=== PATIENT | female | born 1985 | race Hispanic/Latino ===

== ENCOUNTER → 2018-04-06 | Outpatient (CLI) | payer OTHER ==
--- NOTE | 2018-04-06 14:30 | Diagnostic Imaging Report ---
PROCEDURE:HEEL/CALCANEOUS BILATERAL INDICATION:Bilateral heel pain COMPARISON:None. FINDINGS: Normal mineralization. No acute displaced fracture or dislocation. No lytic or blastic lesions. Moderate right and small to moderate left anterior calcaneal enthesophytes. Joint spaces are Soft tissues are unremarkable CONCLUSION: 1. No acute abnormalities. 2. Moderate right and small to moderate left anterior calcaneal enthesophytes. Abelino Blount M.D. Dictated by: Abelino Blount M.D. on 04/06/2018 at 14:34 Electronically approved by: Abelino Blount M.D. on 04/06/2018 at 14:34
== END ==
LOC: RAD 11:22
PROVIDERS: ATTEND Family Medicine
DX: M89.8X7 Other specified disorders of bone, ankle and foot (principal); M79.672 Pain in left foot; M79.671 Pain in right foot; M77.8 Other enthesopathies, not elsewhere classified

== ENCOUNTER → 2020-05-11 | Day surgery (SDC) | payer OTHER ==
[2020-05-06 12:01] LABS: BASOPHILS % 0.4 % (0.0-1.0); EOSINOPHILS # (AUTO) 0.1 (0.0-0.4); EOSINOPHILS % 1.7 % (0.0-6.0); HEMATOCRIT 38.1 % (34.2-44.1); HEMOGLOBIN 12.2 g/dL (12.0-16.0); LYMPHOCYTES # (AUTO) 2.6 (1.0-3.2); MEAN CORPUSCULAR VOLUME 90.5 fL (81-99); MONOCYTES # (AUTO) 0.4 (0.2-0.8); MONOCYTES % 4.8 % (4.4-11.3); NEUTROPHILS # (AUTO) 5.2 (2.1-6.9); NEUTROPHILS % 61.9 % (38.7-80.0); PLATELET COUNT 287 x10e3/uL (140-360); RED BLOOD COUNT 4.21 x10e6/uL (3.6-5.1); RED CELL DISTRIBUTION WIDTH 13.8 % (11.7-14.4)
[2020-05-06 12:13] LABS: INR 1.05; PROTHROMBIN TIME 14.3 seconds (11.9-14.5)
[2020-05-06 12:14] LABS: PARTIAL THROMBOPLASTIN TIME 26.6 seconds (23.8-35.5)
[2020-05-06 12:23] LABS: ALANINE AMINOTRANSFERASE 16 IU/L (0-55); ALBUMIN 3.7 g/dL (3.5-5.0); ALKALINE PHOSPHATASE 78 IU/L (40-150); ANION GAP 12.1 mmol/L (8-16); BLOOD UREA NITROGEN 14 mg/dL (7-26); BUN/CREATININE RATIO 18 (6-25); CARBON DIOXIDE 26 mmol/L (22-29); CHLORIDE 105 mmol/L (98-107); CHOL/HDL RATIO 3.7 (3.0-3.6); CHOLESTEROL 136 MD/DL (0-199); CREATININE, SERUM 0.79 mg/dL (0.57-1.11); EST GLOMERULAR FILTRATION RATE > 60 ML/MIN (60-); GLUCOSE 95 mg/dL (74-118); HDL CHOLESTEROL 37 MG/DL (40-60); LDL CHOLESTEROL 83 MG/DL (60-130); POTASSIUM 4.1 mmol/L (3.5-5.1); SODIUM 139 mmol/L (136-145); TRIGLYCERIDES 81 MG/DL (0-149)
[2020-05-11] VITALS (8 sets, daily range): BP systolic 100–123; BP diastolic 61–78
[~2020-05-11] MED LIST: ASPIRIN 81 MG CHEW TAB ONE; ASPIRIN325 MG PO; FENTANYL CITRATE/PF 100MCG/2 ML INJ ONE; HEPARIN SOD (PORCINE) 1000 UNIT/ML 30ML ONE; HEPARIN SOD/SOD CHLORIDE 2,000 ML ONE; IOPAMIDOL 370 MG/ML 200 ML INFUS..BTL INJ ONE; LIDOCAINE HCL 2% LOCAL 20 ML VIAL ONE; METOPROLOL SUCC25 MG PO; MIDAZOLAM HCL 2 MG/2 ML VIAL ONE; NITROGLYCERIN/D5W 200 MCG/ML 0 ML ONE; SODIUM CHLORIDE 0.9% 1000ML 1,000 ML ONE
--- NOTE | 2020-05-11 09:38 | NUR ---
0938a Received pt to room #9,bedside report received from Zaid SHARMA. Alert oriented and appropriate, PERRLA, respirations even and unlabored to room air. Pulses x4 extremities equal and strong. Pedal pulses PT/DP X4 1+/1+/1+/1+palpable and marked. Cap fill brisk < 3 sec. Rt Groin angioseal No gross issues pain,pallor,pressure or dysrhythmia. Flat till 11am and edc home 12n f/o 4wks may return work 1wk. Skin warm and dry integrity appears D/I IV 20g to KVO left hand site presents healthy w/o s/s of infiltration or complaint. Abdomen soft and supple. pt offered toileting, denies need to urinate or defecate. No personal affects with patient. Family at bedside. Pt and family verbalizes understanding of POC. Knows importance to fill lasix prescription and take. . Currently w/o complaint of pain or need. ingrid/[email or web address] Addendum: 05/11/20 at 1332 by Cassi Amador RN [id number] Amend Iv site locaton actual left ac site w/o s/s infiltration ,secured.
--- NOTE | 2020-05-11 11:00 | NUR ---
1100a discharge teaching completed Stable tolerating po intake and back to baseline orientation ds/rn
--- NOTE | 2020-05-11 11:12 | Operative Report ---
DATE OF PROCEDURE: 05/11/2020 SURGEON: Sundeep Orellana MD PROCEDURE INDICATION: Angina pectoris less limiting CCS III, stable. PROCEDURES PERFORMED: 1. Left heart catheterization. 2. Selective coronary angiography. 3. Right common femoral artery 6-[place] Angio-Seal closure. 4. Right and left heart catheterization. PROCEDURE COMPLICATIONS: None. ESTIMATED BLOOD LOSS: Less than 15 mL. PROCEDURE SUMMARY: After consent was obtained, the patient was prepped and draped in a sterile fashion. The right femoral site was locally infiltrated with 2% lidocaine. An ultrasound-guided access was obtained using micropuncture kit. A 6-[place] sheath was placed to the right common femoral artery and a 7-[place] sheath was placed to the right common femoral vein. Thermodilution pigtail catheter was advanced with an inflated balloon to pulmonary capillary wedge position and hemodynamic measurements were obtained from respective wedge, PA, RV, RA as well as saturations obtained for [place] cardiac output and thermodilution cardiac output also obtained. Attention then directed to the left heart catheterization. A JL4, JR4, and pigtail catheters were used to engage the left main, right coronary artery and to cross the aortic valve respectively 6-[place] catheter. At the end of the procedure, right common femoral artery arteriotomy was closed with 6-[place] Angio-Seal, achieving hemostasis manually to the right common femoral vein after sheath pull. The following findings were observed: 1. No significant gradient across the aortic valve on pullback, 30 peak LV and 30 peak aortic pressure on pullback. The LV pressure was 142/5 with end-diastolic pressure of 33. 2. The aortic pressure is 130/82. 3. Pulmonary capillary wedge was 22 A-wave, B 27, mean 21. 4. PA pressure was 40/19. 5. RV pressure is 44/5 with end-diastolic pressure of 14. 6. RA pressure was A-wave 8, B-wave 12, mean 11. 7. LV-gram reveals preserved left ventricular systolic function, normal regional wall motion, left ventricular ejection fraction is 65% to 70%. 8. [place] cardiac output was 5.62, [place] cardiac index 2.8, thermodilution cardiac output was 7.1. 9. Left main is large in caliber with luminal irregularities gives an LAD and circumflex. 10. The LAD has luminal irregularities throughout gives a diagonal and multiple septal perforators. 11. The ramus intermedius and rest of the left main is small in caliber and has luminal irregularities. 12. The circumflex arises from the left main is large in caliber and has luminal irregularities. It gives left atrial branch, 2 small obtuse marginal and 3rd medium caliber obtuse marginal. 13. The right coronary artery is dominant with luminal irregularities. It gives 2 RV marginals and a terminal RPDA and an RPLV. CONCLUSION: 1. Mild luminal irregularities noted throughout the coronary tree. 2. Preserved left ventricular systolic function and normal cardiac index. 3. Elevated LVEDP and mild pulmonary hypertension in the setting of elevated LVEDP. RECOMMENDATIONS: Furosemide 20 mg daily as needed for treatment of [id number] diastolic heart failure. Given findings, symptoms of crescendo angina likely represented increased volume overload in the setting of underlying diastolic heart disease. Medical therapy. MD CONY Parrish/CARLOS MANUEL /[id number]
--- NOTE | 2020-05-11 12:00 | NUR ---
1200p Discharge nursing note CCL Pt meets DC criteria. Rt groin assessed for s/s of complication and presence of hematoma. Skin warm, dry, no discolor, and pulses present. IV removed from left ac. Distal tip appears intact. VS WNL. Pt denies pain, sob, or need at this time. Family at [facility]. Review of discharge paperwork and follow up instructions. verbalized understanding. Pt to wheelchair and transported to front of hospital. Transferred to private vehicle under own strength w/o incident with DC paperwork in hand. - ds/rn
== END | disposition home or self-care (01) ==
LOC: CATH LAB 06:44
PROVIDERS: ATTEND Internal Medicine Cardiovascular Disease
DX: I50.33 Acute on chronic diastolic (congestive) heart failure (principal); Z11.59 Encounter for screening for other viral diseases; Z01.812 Encounter for preprocedural laboratory examination; Z79.82 Long term (current) use of aspirin
CPT/HCPCS: 36415 ×2; 80053; 80061; 84702; 85025; 85610; 85730; 93460; C1751; C1760; C1766; J2001; J2250; J3010; J7030; Q9967; U0002; 99152; 99153; J1644

== ENCOUNTER → 2024-02-29 | Outpatient (REF) | payer BC ==
[~2024-02-29] MED LIST changes: -ASPIRIN 81 MG CHEW TAB ONE; -FENTANYL CITRATE/PF 100MCG/2 ML INJ ONE; -HEPARIN SOD (PORCINE) 1000 UNIT/ML 30ML ONE; -HEPARIN SOD/SOD CHLORIDE 2,000 ML ONE; +IOPAMIDOL 370 MG/ML 100 ML INFUS..BTL INJ ONE; -IOPAMIDOL 370 MG/ML 200 ML INFUS..BTL INJ ONE; -LIDOCAINE HCL 2% LOCAL 20 ML VIAL ONE; +METOPROLOL TARTRATE INJ 1 MG/ML VIAL ONE; -MIDAZOLAM HCL 2 MG/2 ML VIAL ONE; +NITROGLYCERIN 0.4 MG SUBL ONE; -NITROGLYCERIN/D5W 200 MCG/ML 0 ML ONE; +SODIUM CHLORIDE 0.9% 100 ML ONE; -SODIUM CHLORIDE 0.9% 1000ML 1,000 ML ONE
== END ==
LOC: CT 07:33
PROVIDERS: ATTEND Internal Medicine Cardiovascular Disease
DX: I20.9 Angina pectoris, unspecified (principal); R94.39 Abnormal result of other cardiovascular function study
CPT/HCPCS: 75574; 81025; J7050; Q9967